=== PATIENT | female | born 2000 | race Caucasian/White ===

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

== ENCOUNTER 2024-08-29 11:29 | Emergency (ER) | payer OTHER ==
[2024-08-29 11:33] VITALS: BP 154/90; PULSE 97; RESP 18; TEMP 98.2
--- NOTE | 2024-08-29 11:35 | ED ---
General Adult HPI - General Chief complaint: Extremity Injury, Lower Stated complaint: R foot injury Time Seen by Provider: 08/29/24 11:34 Source: patient, RN notes reviewed Mode of arrival: wheelchair Limitations: no limitations - History of Present Illness Initial comments: 25-year-old female presents to the emergency department for evaluation of foot and ankle injury. Patient states that last night she went outside and twisted her ankle in a hole. She states that since then she has not been able to bear weight on it. She has been utilizing crutches. She notes that it took Tylenol and then later took a Tylenol 3 at home. She states that this relieved the pain somewhat. She denies any other injury. - Related Data Allergies Allergy/AdvReac Type Severity Reaction Status Date / Time No Known Allergies Allergy Verified 08/29/24 11:33 Review of Systems ROS Statement: Those systems with pertinent positive or pertinent negative responses have been documented in the HPI. ROS Other: All systems not noted in ROS Statement are negative. Past Medical History Past Medical History: No Reported History History of Any Multi-Drug Resistant Organisms: None Reported Past Surgical History: No Surgical Hx Reported Past Psychological History: No Psychological Hx Reported Smoking Status: Never smoker Past Alcohol Use History: None Reported Past Drug Use History: Marijuana General Exam Limitations: no limitations General appearance: alert, in no apparent distress Head exam: Present: atraumatic, normocephalic, normal inspection Extremities exam: Present: tenderness (Tenderness to the distal lateral right ankle), normal capillary refill, other (DP PT pulses 2+). Absent: full ROM, pedal edema, joint swelling, calf tenderness Neurological exam: Present: alert, oriented X3 Psychiatric exam: Present: normal affect, normal mood Skin exam: Present: warm, dry, intact, normal color. Absent: rash Course Vital Signs 08/29/24 11:30 Temperature 98.2 F Pulse Rate 97 Respiratory 18 Rate Blood Pressure 154/90 O2 Sat by Pulse 100 Oximetry Medical Decision Making - Medical Decision Making Was pt. sent in by a medical professional or institution ([facility], [facility], urgent care, hospital, or [facility]...) When possible be specific @ -[No] Did you speak to anyone other than the patient for history (EMS, parent, family, police, friend...)? What history was obtained from this source @ -[No] Did you review nursing and triage notes (agree or disagree)? Why? @ -[I reviewed and agree with nursing and triage notes] Were old charts reviewed (outside hosp., previous admission, EMS record, old EKG, old radiological studies, urgent care reports/EKG's, [facility] records)? Report findings @ -[No old charts were reviewed] Differential Diagnosis (chest pain, altered mental status, abdominal pain women, abdominal pain men, vaginal bleeding, weakness, fever, dyspnea, syncope, headache, dizziness, GI bleed, back pain, seizure, CVA, palpatations, mental health, musculoskeletal)? @ -[Differential Musculoskeletal Muscular strain, contusion, ligament sprain, fracture, arthritis, septic arthritis, bursitis, cellulitis, muscle spasm, nerve compression, DVT, arterial occlusion, herpes zoster, electrolyte abnormality, tumor.... This is not meant to be in all inclusive list] EKG interpreted by me (3pts min.). @ -None X-rays interpreted by me (1pt min.). @ -X-ray of the right ankle CT interpreted by me (1pt min.). @ -[None done] U/S interpreted by me (1pt. min.). @ -[None done] What testing was considered but not performed or refused? (CT, X-rays, U/S, labs)? Why? @ -[None] What meds were considered but not given or refused? Why? @ -[None] Did you discuss the management of the patient with other professionals (kvng vu i.e. , PA, [employer], lab, RT, psych nurse, rn social services, shop cooper, teacher, chief wellness officer, pillowcase folder)? Give summary @ -[No] Was smoking cessation discussed for >3mins.? @ -[No] Was critical care preformed (if so, how long)? @ -[No] Were there social determinants of health that impacted care today? How? (Homelessness, low income, unemployed, alcoholism, drug addiction, transportation, low edu. Level, literacy, decrease access to med. care, [facility], rehab)? @ -[No] Was there de-escalation of care discussed even if they declined (Discuss DNR or withdrawal of care, Hospice)? DNR status @ -[No] What co-morbidities impacted this encounter? (DM, HTN, Smoking, COPD, CAD, Cancer, CVA, ARF, Chemo, Hep., AIDS, mental health diagnosis, sleep apnea, morbid obesity)? @ -[None] Was patient admitted / discharged? Hospital course, mention meds given and route, prescriptions, significant lab abnormalities, going to OR and other pertinent info. @ -[hospital course] Undiagnosed new problem with uncertain prognosis? @ -[No] Drug Therapy requiring intensive monitoring for toxicity (Heparin, Nitro, Insulin, Cardizem)? @ -[No] Were any procedures done? @ -[No] Diagnosis/symptom? @ -[default] Acute, or Chronic, or Acute on Chronic? @ -[default] Uncomplicated (without systemic symptoms) or Complicated (systemic symptoms)? @ -[default] Side effects of treatment? @ -[No] Exacerbation, Progression, or Severe Exacerbation? @ -[No] Poses a threat to life or bodily function? How? (Chest pain, USA, MA, pneumonia, PE, COPD, DKA, ARF, appy, cholecystitis, CVA, Diverticulitis, Homicidal, S uicidal, threat to staff... and all critical care pts) @ -[No] Disposition Clinical Impression: Left ankle sprain Disposition: HOME SELF-CARE Condition: Stable Instructions (If sedation given, give patient instructions): Ankle Sprain (ED) Additional Instructions: Please follow up with your primary care provider. Return to the emergency department for new or worsening symptoms. Is patient prescribed a controlled substance at d/c from ED?: No Referrals: Alondra Glover MD [Primary Care Provider] - 1-2 days
[2024-08-29] MEDS: KETOROLAC 15 MG/ML 1 ML VIAL IM STA (11:54)
--- NOTE | 2024-08-29 12:13 | XR ---
EXAMINATION TYPE: XR ankle complete RT DATE OF EXAM: 08/29/2024 COMPARISON: NONE HISTORY: Pain, twisting injury. TECHNIQUE: Frontal, lateral and oblique images of the right ankle are obtained. FINDINGS: There is no acute fracture/dislocation evident. The joint spaces appear within normal shah its. Minimal soft tissue swelling ankle. IMPRESSION: 1. No acute fracture or dislocation seen. 2. Minimal soft tissue swelling of the ankle. [facility], , 08/29/2024 12:11 PM
== END 2024-08-29 13:41 | disposition home or self-care (01) ==
LOC: EC 11:29
DX: S93.401A Sprain of unspecified ligament of right ankle, initial encounter (principal); X50.1XXA Overexertion from prolonged static or awkward postures, initial encounter
CPT/HCPCS: 73610; 99283; 96372; J1885

== ENCOUNTER 2024-12-22 09:52 | Emergency (ER) | payer OTHER ==
[2024-12-22 10:19] VITALS: TEMP 98.3
[2024-12-22] MEDS: ONDANSETRON 4 MG/2 ML VIAL IVP STA (10:50)
[2024-12-22] MEDS: SODIUM CHLORIDE 0.9% 1,000 ML IV STA (10:51)
[2024-12-22 11:14] LABS: Basophils # (A) 0.04 10*3/uL (0.00-0.10); Basophils % (A) 0.5 %; Eosinophils # (A) 0.12 10*3/uL (0.04-0.35); Eosinophils % (A) 1.6 %; HCT 37.7 % (37.2-46.3); HGB 12.8 g/dL (12.0-15.0); Lymphocytes # (A) 1.71 10*3/uL (0.90-5.00); Lymphocytes % (A) 23.3 %; MCH 27.7 pg (27.0-32.0); MCV 81.6 fL (80.0-97.0); Mean Platelet Volume 8.9 fL (9.5-12.2); Monocytes # (A) 0.62 10*3/uL (0.20-1.00); Monocytes % (A) 8.5 %; Neutrophils # (A) 4.77 10*3/uL (1.80-7.70); Neutrophils % (A) 65.1 %; Platelet Count 280 10*3/uL (140-440); RBC 4.62 10*6/uL (4.10-5.20); RDW 13.6 % (11.5-14.5); WBC 7.33 10*3/uL (4.50-10.00)
[2024-12-22 11:32] LABS: ALT 17 U/L (4-34); AST 20 U/L (14-36); African American GFR (CKD) >90 (>60 ml/min/1.73 sqM); Albumin 4.6 g/dL (3.5-5.0); Alkaline Phosphatase 83 U/L (38-126); Anion Gap 8 mmol/L; Blood Urea Nitrogen 12 mg/dL (7-17); Calcium 9.9 mg/dL (8.4-10.2); Carbon Dioxide 22 mmol/L (22-30); Chloride 108 mmol/L (98-107); Glucose 98 mg/dL (74-99); Magnesium 2.1 mg/dL (1.6-2.3); Non-African American GFR(CKD) >90 (>60 ml/min/1.73 sqM); Potassium 4.7 mmol/L (3.5-5.1); Sodium 138 mmol/L (137-145); Total Bilirubin 0.5 mg/dL (0.2-1.3); Total Protein 7.2 g/dL (6.3-8.2)
--- NOTE | 2024-12-22 11:38 | ED ---
Dizziness HPI - General Chief Complaint: Dizziness Stated Complaint: Nausea, slow heart rate, dizziness Time Seen by Provider: 12/22/24 10:28 Source: patient, RN notes reviewed Mode of arrival: ambulatory Limitations: no limitations - History of Present Illness Initial Comments: This is a 24-year-old female who presents to the emergency department for di marcziremberto. States that starting this morning she started to feel dizzy and felt like she could pass out. The episode lasted around 10 minutes and she felt nauseous afterwards. After a while she had another episode that felt the same and then resolved. States that she still feels somewhat nauseous but is overall feeling much better. She did not have any headaches, chest pain, or shortness of breath when this occurred. Denies any history of similar problems in the past. She did just increase her Lexapro from 5 to 10 mg last night and wonders if this may have caused the symptoms. MD Complaint: dizziness, near syncope - Related Data Allergies Allergy/AdvReac Type Severity Reaction Status Date / Time No Known Allergies Allergy Verified 12/22/24 10:19 Review of Systems ROS Statement: Those systems with pertinent positive or pertinent negative responses have been documented in the HPI. ROS Other: All systems not noted in ROS Statement are negative. Past Medical History Past Medical History: No Reported History History of Any Multi-Drug Resistant Organisms: None Reported Past Surgical History: No Surgical Hx Reported Past Psychological History: No Psychological Hx Reported Smoking Status: Never smoker Past Alcohol Use History: None Reported Past Drug Use History: Marijuana General Exam Limitations: no limitations General appearance: alert, in no apparent distress Head exam: Present: atraumatic, normocephalic, normal inspection Eye exam: Present: normal appearance, PERRL, EOMI. Absent: scleral icterus, conjunctival injection, periorbital swelling Respiratory exam: Present: normal lung sounds bilaterally. Absent: respiratory distress, wheezes, rales, rhonchi, stridor Cardiovascular Exam: Present: regular rate, normal rhythm Neurological exam: Present: alert, oriented X3, CN II-XII intact Psychiatric exam: Present: normal affect, normal mood Skin exam: Present: warm, dry, intact, normal color. Absent: rash Course Vital Signs 12/22/24 12/22/24 12/22/24 10:16 12:19 13:28 Temperature 98.3 F Pulse Rate 86 68 68 Respiratory 18 16 16 Rate Blood Pressure 139/88 130/68 O2 Sat by Pulse 100 98 98 Oximetry Medical Decision Making - Medical Decision Making This is a 24 year old female who presents to the emergency department for dizziness. Was pt. sent in by a medical professional or institution? @ -No Did you speak to anyone other than the patient for history? @ -No Did you review nursing and triage notes? @ -Yes, and I agree, it is accurate with regards to the patient's symptoms. Were old charts reviewed? @ -No Differential Diagnosis? @ -Differential Dizziness: Benign paroxysmal positional Vertigo, Meniere's disease, otitis media, acoustic neuroma, vertebrobasilar insufficiency, cerebellar stroke, encephalitis, hypovolemic, arrhythmia, coronary artery syndrome, anemia, this is not meant to be an all-inclusive list EKG interpreted by me (3pts min.)? @ -EKG interpreted by me demonstrating the following: Sinus rhythm. Ventricular rate 77 bpm, WA interval 127 ms, QRS duration 97 ms, QTc 383 ms X-rays interpreted by me (1pt min.)? @ -Chest x-ray obtained, my interpretation identifies no localized consolidations or infiltrates. CT interpreted by me (1pt min.)? @ -Not obtained U/S interpreted by me (1pt. min.)? @ -Not obtained What testing was considered but not performed? (CT, X-rays, U/S, labs)? Why? @ -None What meds were considered but not given? Why? @ -None Did you discuss the management of the patient with other professionals? @ -No Did you reconcile home meds? @ -No Was smoking cessation discussed for >3mins.? @ -No Was critical care preformed (if so, how long)? @ -No Were there social determinants of health that impacted care today? How? (Homelessness, low income, unemployed, alcoholism, drug addiction, transportation, low edu. Level, literacy, decrease access to med. care, prison, rehab)? @ -No Was there de-escalation of care discussed even if they declined? (Discuss DNR or withdrawal of care, Hospice)? @ -No What co-morbidities impacted this encounter? (DM, HTN, Smoking, COPD, CAD, Cancer, CVA, Hep., AIDS, mental health diagnosis, sleep apnea, morbid obesity)? @ -None Was patient admitted / discharged? @ -Discharged. Lab work unremarkable. D-dimer and troponin negative. Chest x-ray reveals no acute process. Aside from mild nausea, patient was relatively asymptomatic in the emergency department. Zofran and IV fluids administered. On reevaluation she did feel significantly improved. Advised that the cause of her symptoms is not entirely clear. It could be related to the medication increase and we discussed that it may take a couple of days for this to normalize. Advised that she continue trying to take it to see if this reoccurs or if this stabilizes. However, she is advised to follow-up with her PCP regardless to discuss her ongoing symptoms and medication. Patient discharged home in stable condition. Case discussed with ED attending Dr. Beauchamp. Return precautions reviewed in depth, the patient is instructed to return to the emergency department with any new, worsening, or concerning symptoms. Patient verbalized understanding. Undiagnosed new problem with uncertain prognosis? @ -None Drug Therapy requiring intensive monitoring for toxicity (Heparin, Nitro, I nsulin, Cardizem)? @ -None Were any procedures done? @ -None Diagnosis/symptom? @ -Dizziness, near syncope, nausea Acute, or Chronic, or Acute on Chronic? @ -Acute Uncomplicated (without systemic symptoms) or Complicated (systemic symptoms)? @ -Uncomplicated Side effects of treatment? @ -None Exacerbation, Progression, or Severe Exacerbation] @ -Not applicable Poses a threat to life or bodily function? @ -None - Lab Data Result diagrams: 12/22/24 10:34 12/22/24 10:34 Lab Results 12/22/24 12/22/24 12/22/24 Range/Units 10:34 10:34 10:34 WBC 7.33 (4.50-10.00) 10*3/uL RBC 4.62 (4.10-5.20) 10*6/uL Hgb 12.8 (12.0-15.0) g/dL Hct 37.7 (37.2-46.3) % MCV 81.6 (80.0-97.0) fL MCH 27.7 (27.0-32.0) pg MCHC 34.0 (32.0-37.0) g/dL Plt Count 280 (140-440) 10*3/uL MPV 8.9 L (9.5-12.2) fL Immature Gran % (Auto) 1.0 % Neutrophils % 65.1 % Lymphocytes % 23.3 % Monocytes % 8.5 % Eosinophils % 1.6 % Basophils % 0.5 % Immature Gran # 0.07 H (0.00-0.04) 10*3/uL Neutrophils # 4.77 (1.80-7.70) 10*3/uL Lymphocytes # 1.71 (0.90-5.00) 10*3/uL Monocytes # 0.62 (0.20-1.00) 10*3/uL Eosinophils # 0.12 (0.04-0.35) 10*3/uL Basophils # 0.04 (0.00-0.10) 10*3/uL D-Dimer (<0.60) mg/L FEU Sodium 138 (137-145) mmol/L Potassium 4.7 (3.5-5.1) mmol/L Chloride 108 H (98-107) mmol/L Carbon Dioxide 22 (22-30) mmol/L Anion Gap 8 mmol/L BUN 12 (7-17) mg/dL Creatinine 0.58 (0.52-1.04) mg/dL Est GFR (CKD-EPI)AfAm >90 (>60 ml/min/1.73 sqM) Est GFR (CKD-EPI)NonAf >90 (>60 ml/min/1.73 sqM) Glucose 98 (74-99) mg/dL Calcium 9.9 (8.4-10.2) mg/dL Magnesium 2.1 (1.6-2.3) mg/dL Total Bilirubin 0.5 (0.2-1.3) mg/dL AST 20 (14-36) U/L ALT 17 (4-34) U/L Alkaline Phosphatase 83 (38-126) U/L Troponin I <0.012 (0.000-0.034) ng/mL Total Protein 7.2 (6.3-8.2) g/dL Albumin 4.6 (3.5-5.0) g/dL TSH (0.465-4.680) mIU/L HCG, Qual Not Detected 12/22/24 12/22/24 Range/Units 10:50 10:55 WBC (4.50-10.00) 10*3/uL RBC (4.10-5.20) 10*6/uL Hgb (12.0-15.0) g/dL Hct (37.2-46.3) % MCV (80.0-97.0) fL MCH (27.0-32.0) pg MCHC (32.0-37.0) g/dL Plt Count (140-440) 10*3/uL MPV (9.5-12.2) fL Immature Gran % (Auto) % Neutrophils % % Lymphocytes % % Monocytes % % Eosinophils % % Basophils % % Immature Gran # (0.00-0.04) 10*3/uL Neutrophils # (1.80-7.70) 10*3/uL Lymphocytes # (0.90-5.00) 10*3/uL Monocytes # (0.20-1.00) 10*3/uL Eosinophils # (0.04-0.35) 10*3/uL Basophils # (0.00-0.10) 10*3/uL D-Dimer 0.31 (<0.60) mg/L FEU Sodium (137-145) mmol/L Potassium (3.5-5.1) mmol/L Chloride (98-107) mmol/L Carbon Dioxide (22-30) mmol/L Anion Gap mmol/L BUN (7-17) mg/dL Creatinine (0.52-1.04) mg/dL Est GFR (CKD-EPI)AfAm (>60 ml/min/1.73 sqM) Est GFR (CKD-EPI)NonAf (>60 ml/min/1.73 sqM) Glucose (74-99) mg/dL Calcium (8.4-10.2) mg/dL Magnesium (1.6-2.3) mg/dL Total Bilirubin (0.2-1.3) mg/dL AST (14-36) U/L ALT (4-34) U/L Alkaline Phosphatase (38-126) U/L Troponin I (0.000-0.034) ng/mL Total Protein (6.3-8.2) g/dL Albumin (3.5-5.0) g/dL TSH 1.900 (0.465-4.680) mIU/L HCG, Qual - Radiology Data Radiology results: report reviewed, image reviewed Disposition Clinical Impression: Dizziness, Nausea Disposition: HOME SELF-CARE Instructions (If sedation given, give patient instructions): Near Syncope (ED), Dizziness (ED) Additional Instructions: Return to the emergency department with any new, worsening, or concerning symptoms. Continue taking your increased dose of Lexapro and see if your symptoms persist or not. If they do not resolve after the next several days, you may need to discuss the dosing and medication with the prescribing provider. Follow up with your primary care provider in 1-2 days. Is patient prescribed a controlled substance at d/c from ED?: No Referrals: Alondra Glover MD [Primary Care Provider] - 1-2 days Time of Disposition: 13:11
--- NOTE | 2024-12-22 11:55 | XR ---
EXAMINATION TYPE: XR chest 2V DATE OF EXAM: 12/22/2024 11:51 AM COMPARISON: None CLINICAL INDICATION: Female, 24 years old with history of Dizziness, , TECHNIQUE: PA and lateral views FINDINGS: The cardiomediastinal silhouette, aorta, and pulmonary vasculature are within normal limits. Hazy riccardo g densities relating to overlying soft tissues. Otherwise, lungs and pleural spaces are clear. IMPRESSION: No acute cardiopulmonary process. [facility], , 12/22/2024 11:52 AM
[2024-12-22 12:29] LABS: HCG,Qualitative Serum Not Detected
[2024-12-22 12:43] VITALS: BP 130/68; PULSE 68; RESP 16
[2024-12-22] MEDS: ONDANSETRON 4 MG ODT STARTER PACK 2 TAB BTL PO STA (13:25)
== END 2024-12-22 13:29 | disposition home or self-care (01) ==
LOC: EC 09:52
DX: R42 Dizziness and giddiness (principal); R11.0 Nausea; R55 Syncope and collapse
CPT/HCPCS: 36415; 85379; 80053; 84443; 83735; 84484; 85025; 84703; 71046; 99284; 96374; 96361 ×3; J2405; S0119